=== PATIENT | female | born 1955 | race Hispanic/Latino ===

== ENCOUNTER 2023-09-15 06:51 | Day surgery (SDC) | payer OTHER ==
[2023-09-15] VITALS (8 sets, daily range): BP systolic 97–126; BP diastolic 50–73; PULSE 62–73; RESP 14–20
[~2023-09-15] VITALS: Ht 162.6 cm; Wt 67.6 kg
[~2023-09-15 06:51] MED LIST: LISI20TA24 PO; OMEP20CA12 PO
[2023-09-15] MEDS ORDERED: PROPOFOL 10 MG/ML 20ML VIAL IV ONE (08:58)
[2023-09-15] MEDS ORDERED: LIDOCAINE HCL-MPF 2% 10ML AMP IJ ONE (08:59)
== END 2023-09-15 10:15 | disposition home or self-care (01) ==
LOC: ENDO 06:51 → DAH 06:51 → ENDO 10:15
PROVIDERS: ATTEND Internal Medicine Gastroenterology
DX: K22.2 Esophageal obstruction (principal); R13.10 Dysphagia, unspecified; T18.128A Food in esophagus causing other injury, initial encounter; I10 Essential (primary) hypertension; E78.5 Hyperlipidemia, unspecified; Z90.49 Acquired absence of other specified parts of digestive tract; Z98.890 Other specified postprocedural states; Z90.710 Acquired absence of both cervix and uterus; Z98.891 History of uterine scar from previous surgery; Z90.89 Acquired absence of other organs; X58.XXXA Exposure to other specified factors, initial encounter
CPT/HCPCS: 43235; J2704; J3490; A4620; A4215 ×2; A4223; A7002; A4222; A4221; A4663; A4216; J7030; A4606

== ENCOUNTER 2023-11-03 07:12 | Day surgery (SDC) | payer OTHER ==
[2023-11-03] VITALS (10 sets, daily range): BP systolic 133–158; BP diastolic 65–83; PULSE 52–65; RESP 10–18
[~2023-11-03] VITALS: Ht 162.6 cm; Wt 64.0 kg
[~2023-11-03 07:12] MED LIST changes: +ONDA8TAB12 PO; +VITAD50000 PO
[2023-11-03] MEDS ORDERED: PROPOFOL 10 MG/ML 20ML VIAL IV ONE (09:05)
[2023-11-03] MEDS ORDERED: GLYCOPYRROLATE 0.2 MG/ML 5 ML VIAL ONE (09:20)
[2023-11-03] MEDS ORDERED: BOTULINUM TOXIN TYPE A 100 UNITS/VIAL INJ ONE (09:28)
[2023-11-03] MEDS ORDERED: SUCCINYLCHOLINE CHLORIDE 20 MG/ML 10 ML VIAL ONE (09:46)
[2023-11-03] MEDS ORDERED: ROCURONIUM BROMIDE 10MG/1ML 5ML VL ONE (09:46)
[2023-11-03] MEDS ORDERED: PHENYLEPHRINE HCL 10 MG/ML 1ML VIAL IV ONE (09:46)
[2023-11-03] MEDS ORDERED: NEOSTIGMINE METHYLSULFATE 1MG/ML IV ONE (09:49)
== END 2023-11-03 11:30 | disposition home or self-care (01) ==
LOC: DAH 07:12
PROVIDERS: ATTEND Internal Medicine Gastroenterology
DX: R13.10 Dysphagia, unspecified (principal); K22.0 Achalasia of cardia; B37.81 Candidal esophagitis; K22.2 Esophageal obstruction; K59.00 Constipation, unspecified; I10 Essential (primary) hypertension; E78.5 Hyperlipidemia, unspecified; Z90.710 Acquired absence of both cervix and uterus; Z90.89 Acquired absence of other organs; Z98.891 History of uterine scar from previous surgery; Z98.890 Other specified postprocedural states
CPT/HCPCS: 43236; 43239; J0330; J3490 ×2; J2704; J2710; J2371; J0585; A4620; A4215 ×2; A4223; A7002; A4222; A4221; A4663; A4216; J7030; A4606; C1773